=== PATIENT | male | born 1940 | race Caucasian/White ===

== ENCOUNTER 2017-03-23 08:35 | Outpatient (CLI) | payer MEDICARE, BC ==
[2017-03-23 12:04] LABS: ALT (SGPT) 15 U/L (8-55); AST (SGOT) 22 U/L (5-34); Alkaline Phosphatase 86 U/L (40-150); Anion Gap 15 mmol/L (10-20); BUN (Urea Nitrogen) 16 mg/dL (8.4-25.7); Bilirubin, Direct 0.2 mg/dL (0.1-0.3); Bilirubin, Total 0.4 mg/dL (0.2-1.2); Calc. Creatinine Clearance 0 mL/min (70-130); Calcium 9.8 mg/dL (7.8-10.44); Carbon Dioxide 27 mmol/L (23-31); Cardiac Risk 5.9 (Less than 4.5); Chloride 101 mmol/L (98-107); Cholesterol 200 mg/dl (< 200 Desired); Estimated GFR-MDRD 63; Glucose 89 mg/dL (83-110); HDL Cholesterol 34 mg/dL (>60 Neg Risk); LDL Cholesterol, Calculated 89 mg/dL; Potassium 5.1 mmol/L (3.5-5.1); Protein, Total 6.6 g/dL (5.8-8.1); Sodium 138 mmol/L (136-145); Triglycerides 387 mg/dL (Less than 150)
[2017-03-23 12:17] LABS: #Basophils 0.1 thou/uL (0.0-0.2); #Eosinphils 0.4 thou/uL (0.0-0.7); #Lymphocytes 1.6 thou/uL (1.20-3.40); #Monocytes 0.6 thou/uL (0.11-0.59); #Neutrophils 4.8 thou/uL (1.40-6.50); %Basophils 1.4 % (0.0-1.0); %Eosinophils 4.8 % (0.0-10.0); %Lymphocytes 21.1 % (21.0-51.0); %Monocytes 8.1 % (0.0-10.0); %Neutrophils 64.6 % (42.0-75.0); Mean Corpuscular HGB CONC 32.7 g/dL (32.0-36.0); Mean Corpuscular Hemoglobin 31.3 pg (27.0-31.0); Mean Corpuscular Volume 95.6 fl (80.0-94.0); Mean Platelet Volume 6.8 fL (7.4-10.4); Platelet Count 229 thou/uL (130-400); Red Blood Cell (RBC) Count 4.49 mill/uL (4.70-6.10); White Blood Cell (WBC) Count 7.4 thou/uL (4.8-10.8)
[2017-03-23 12:40] LABS: Hemoglobin A1c 5.3 % (4.0-6.0)
== END 2017-03-23 08:36 | disposition home or self-care (01) ==
LOC: NAVSJIPCSP 08:35
PROVIDERS: ATTEND Family Medicine
DX: E78.00 Pure hypercholesterolemia, unspecified (principal); E78.5 Hyperlipidemia, unspecified; E04.1 Nontoxic single thyroid nodule; I10 Essential (primary) hypertension; M19.011 Primary osteoarthritis, right shoulder; N40.1 Benign prostatic hyperplasia with lower urinary tract symptoms; I25.10 Atherosclerotic heart disease of native coronary artery without angina pectoris
CPT/HCPCS: 36415; 80048; 80061; 80076; 83036; 84443; 85025

== ENCOUNTER 2020-12-03 09:27 | Outpatient (CLI) | payer MEDICARE, BC | END 2020-12-03 09:28 | disposition home or self-care (01) | LOC: NAV RAD 09:27 | PROVIDERS: ATTEND Internal Medicine Cardiovascular Disease | DX: R06.02 Shortness of breath (principal) | CPT/HCPCS: 71046 ==

== ENCOUNTER 2022-08-03 12:01 | Emergency (ER) | payer MEDICARE, BC ==
[2022-08-03] MEDS ORDERED: Boostrix 0.5 ML (Tdap) VIAL (>/=7 yrs of age) ONE (12:22)
[2022-08-03] MEDS ORDERED: Lidocaine 1% (PF) 30 ML VIAL ONE (12:37)
[2022-08-03] MEDS ORDERED: Bacitracin 1 PK ONE ×2 (13:15→13:18)
== END 2022-08-03 13:40 | disposition home or self-care (01) ==
LOC: NAV ERS 12:01
DX: S01.81XA Laceration without foreign body of other part of head, initial encounter (principal); S60.812A Abrasion of left wrist, initial encounter; Z23 Encounter for immunization; Z87.891 Personal history of nicotine dependence; W19.XXXA Unspecified fall, initial encounter
CPT/HCPCS: 12002; 70450; 90471; 90715; J2001

== ENCOUNTER 2024-01-18 01:30 | Emergency (ER) | payer MEDICARE, BC ==
[2024-01-18 02:18] LABS: #Eosinphils 0.2 thou/uL (0.0-0.7); #Lymphocytes 1.1 thou/uL (1.20-3.40); #Monocytes 0.9 thou/uL (0.11-0.59); #Neutrophils 8.6 thou/uL (1.40-6.50); %Basophils 0.4 % (0.0-1.0); %Eosinophils 2.2 % (0.0-10.0); %Lymphocytes 10.1 % (21.0-51.0); %Neutrophils 79.3 % (42.0-75.0); Hematocrit 35.6 % (42.0-52.0); Hemoglobin 11.3 g/dL (14.0-18.0); Mean Corpuscular HGB CONC 31.8 g/dL (32.0-36.0); Mean Corpuscular Hemoglobin 30.8 pg (27.0-31.0); Mean Corpuscular Volume 96.9 fl (78.0-98.0); Mean Platelet Volume 5.7 fL (7.4-10.4); Platelet Count 203 10x3/uL (130-400); RBC Distribution Width 13.1 % (11.5-14.5); Red Blood Cell (RBC) Count 3.68 mill/uL (4.70-6.10); White Blood Cell (WBC) Count 10.8 10x3/uL (4.8-10.8)
[2024-01-18 02:26] LABS: INR-International Normal Ratio 1.2; Prothrombin Time 14.9 sec (12.0-14.7)
[2024-01-18 02:27] LABS: PTT 29.1 sec (22.9-36.1)
[2024-01-18 02:35] LABS: ALT (SGPT) 171 U/L (8-55); AST (SGOT) 194 U/L (5-34); Albumin 3.3 g/dL (3.4-4.8); Alkaline Phosphatase 155 U/L (40-110); Anion Gap 14 mmol/L (10-20); BUN (Urea Nitrogen) 27 mg/dL (8.4-25.7); Bilirubin, Total 0.8 mg/dL (0.2-1.2); Calc. Creatinine Clearance 0 mL/min (70-130); Calcium 8.8 mg/dL (7.8-10.44); Carbon Dioxide 23 mmol/L (23-31); Chloride 102 mmol/L (98-107); Estimated GFR 53; Globulin 3.1 g/dL (2.4-3.5); Glucose 147 mg/dL (83-110); Potassium 3.9 mmol/L (3.5-5.1); Protein, Total 6.4 g/dL (5.8-8.1); Sodium 135 mmol/L (136-145)
== END 2024-01-18 03:53 | disposition home or self-care (01) ==
LOC: NAV ERS 01:30
DX: L76.22 Postprocedural hemorrhage of skin and subcutaneous tissue following other procedure (principal); Z87.891 Personal history of nicotine dependence
CPT/HCPCS: 80053; 85025; 85610; 85730; 99283

== ENCOUNTER 2024-10-04 12:27 | Emergency (ER) | payer MEDICARE, BC, OTHER ==
[2024-10-04] MEDS ORDERED: Bacitracin 1 PK ONE (13:29)
[2024-10-04] MEDS ORDERED: Amoxicillin/Potassium Clav 875 MG TAB ONE (14:03)
== END 2024-10-04 14:13 | disposition home or self-care (01) ==
LOC: NAV ERS 12:27
DX: S02.2XXA Fracture of nasal bones, initial encounter for closed fracture (principal); S50.312A Abrasion of left elbow, initial encounter; S50.11XA Contusion of right forearm, initial encounter; Z87.891 Personal history of nicotine dependence; Z79.82 Long term (current) use of aspirin; W19.XXXA Unspecified fall, initial encounter; W55.22XA Struck by cow, initial encounter; Y93.89 Activity, other specified
CPT/HCPCS: 70450; 70486

== ENCOUNTER 2025-05-08 10:37 | Outpatient (CLI) | payer MEDICARE, BC | END 2025-05-08 10:38 | disposition home or self-care (01) | LOC: NAV RAD 10:37 | PROVIDERS: ATTEND Family Medicine | DX: R05.1 Acute cough (principal); I51.7 Cardiomegaly; R09.89 Other specified symptoms and signs involving the circulatory and respiratory systems | CPT/HCPCS: 71046 ==